=== PATIENT | female | born 1945 | race Caucasian/White ===

== ENCOUNTER 2023-01-12 11:35 | Outpatient (CLI) | payer MEDICARE, SELFPAY ==
--- NOTE | 2023-01-12 11:30 | RT.EKG_ITS ---
APPROVED REPORT Exam: Resting ECG Reason for Exam: pre op examination Patient Location: O HR:76 bpm ECG Measurements Heart Rate 76 AXIS IA 162 P 49 QRSd 79 QRS 16 QT 354 T 42 QTc 399 Conclusion Sinus rhythm...normal P axis, V-rate 50- 99 Sinus pause...long R-R interval, normal QRSd
== END 2023-01-12 11:36 | disposition home or self-care (01) ==
LOC: DI.CM 11:36
PROVIDERS: PCP Nurse Practitioner Family; Visit Provider Nurse Practitioner Family
DX: Z01.818 Encounter for other preprocedural examination (principal)
CPT/HCPCS: 93010

== ENCOUNTER 2023-01-28 06:49 | Day surgery (SDC) | payer MEDICARE, SELFPAY ==
--- NOTE | 2023-01-28 06:15 | W.ANESPRE ---
General Info Date of Service Date Performed: 01/28/23 Height: 4 ft 9 in Weight: 65.771 kg Body Mass Index (BMI): 31.4 Surgical Procedure: Operation Date: 01/28/23 08:25 Proposed Procedure Side Surgeon p Cataract Extraction with IOL Implant Left Noe Soto MD Meds Allergies and Home Medications Allergies Allergy/AdvReac Type Severity Reaction Status Date / Time No Known Allergies Allergy Verified 01/12/23 10:53 Home Medication Medication Instructions Recorded Unknown [No Known Home Meds] 01/12/23 Current Visit Medications: Current Medications Generic Name Dose Route Start Last Admin Trade Name Freq PRN Reason Stop Dose Admin Acetaminophen 1,000 mg 01/28/23 06:00 Acetaminophen 500 Mg Tab PO 02/27/23 05:59 Q4H PRN PRN Balanced Salt Solution 500 ml 01/28/23 06:00 Balanced Salt Soln.-Plus 500 Ml Bag OP 02/27/23 05:59 DIRECTED VASHTI Miscellaneous Medication 0 ml 01/28/23 06:00 Prednisolone 1%, Moxifloxacin 0.5%, Nepafenac 0.1% 5ml Btl OS 02/27/23 05:59 DIRECTED VASHTI Miscellaneous Medication 0 ml 01/28/23 06:00 Tropicam./Phenyleph. (1/2.5%) 5 Ml Btl OS 02/27/23 05:59 DIRECTED VASHTI Tetracaine HCl 0 ml 01/28/23 06:00 Tetracaine 0.5% 4 Ml Btl OS 02/27/23 05:59 DIRECTED VASHTI PFSH Active Problems Active Problems: Problem Status Onset Code Cortical age-related cataract, left eye H25.012 Nuclear age-related cataract, left eye H25.12 Osteoporosis M81.0 Pre-op exam Z01.818 Tobacco Smoking/Tobacco Use Status: Never Passive smoking exposure: Yes Second hand exposure: Yes Alcohol Alcohol Intake: never Substance Use Substance use: Never Vital Signs and Lab Results Lab Results Blood Type / Crossmatch: No Data to Display Complete Blood Count: No Data to Display Complete Metabolic Panel: No Data to Display Liver Function Panel: No Data to Display Coagulation Panel: No Data to Display Cardiac Panel: No Data to Display Arterial Blood Gas: No Data to Display Venous Blood Gas: No Data to Display Pancreas Panel: No Data to Display Thyroid Panel: No Data to Display Infectious Disease: No Data to Display Blood Cultures: No Data to Display Toxicology Panel: No Data to Display Imaging and Studies Imaging and Studies Study information below may be from another EMR and interpreted by another provider. Please see original notes in EMR for more complete details. EKG Summary: 01/05: sinus rhythm. Anesthesia Assessment and Plan Anesthesia History Personal History: No History of Anesthesia Complications Family History: No Family History of Anesthesia Complications Exercise Tolerance Exercise Tolerance: Metabolic Equivalents>4 Cardiac & Pulmonary Exam Cardiac Exam: Normal S1/S2 Heart Sounds Pulmonary Exam: Clear Bilateral Breath Sounds Implantable Cardiac Device Does patient have a Pacemaker or an ICD?: No Airway Exam Known Difficult Airway: No Mallampati Class: 4 Mouth Opening: Normal (> 3cm) Thyromental Distance: Greater than 3 cm Neck Range of Motion: Full ROM Neck Circumference: Normal Teeth Condition: Generalized Poor Dentition and Edentulous ASA Classification ASA Score: ASA 1 Emergency Case?: No NPO Status NPO Status: NPO Clears >2 hours, Solids >8 hours Anesthesia Plan Resuscitation Status: Full Code Anesthesia Technique: MAC Anesthesia Airway Planned: Natural Airway Monitors Used: Standard Monitors Preoperative Comments:: 77 yo female for cataract removal. Sig PMHx: osteoporosis, denies major, no meds. Does currently have an ulcerated tooth and is on antibiotics.
[2023-01-28 06:58] VITALS: BP 147/64; PULSE 82; RESP 16; TEMP 36.5; O2SAT 100
[2023-01-28 07:03] VITALS: BMI 31.4
[2023-01-28] MEDS: Tropicam./Phenyleph. (1/2.5%) 5 ML BTL OS ×3 (07:09→07:22)
[2023-01-28] MEDS: Povidone-Iodine Ophth 30 ML BTL (08:11)
[2023-01-28] MEDS: Tetracaine 0.5% 4 ML BTL OS (08:11)
[2023-01-28] MEDS: Duovisc Viscoelastic System EACH 1 EACH (08:16)
[2023-01-28] MEDS: Balanced Salt Soln.-PLUS 500 ML BAG OP (08:16)
[2023-01-28] MEDS: Phenylephrine/Lidocaine (15/10) MG/ML 1 ML VIAL (08:17)
[2023-01-28] MEDS: Lidocaine 1% Pres-Free 5 ML VIAL (08:17)
[2023-01-28] MEDS: Trypan Blue 0.06% 0.5 ML SYR (08:18)
[2023-01-28 08:35] VITALS: BP 145/62; PULSE 75; RESP 16; TEMP 36.2; O2SAT 99
--- NOTE | 2023-01-28 08:37 | ROE_ITS ---
Date of service: 01/28/23 Time of Service: 08:38 Operative Note Operative Note DATE OF PROCEDURE: 01/28/23 PRE-OP DIAGNOSIS: Nuclear/cortical cataract, left eye POST-OP DIAGNOSIS: same PROCEDURE: Cataract extraction using phacoemulsification with intraocular lens implant, left eye SURGEON: Noe Soto ANESTHESIA TYPE: Local By Surgeon and MAC Refer to Anesthesia Record PATHOLOGY: none sent COMPLICATIONS: None Patient was transported to: same day Patient's condition: stable Implants: Pasquale and Pasquale Tecnis Eyhance DIB00 Indications: Progressive decreased vision due to cataract, left eye Procedure Description: CATARACT SURGERY OPERATIVE REPORT PREOPERATIVE DIAGNOSIS: 1. Nuclear/cortical cataract, left eye POSTOPERATIVE DIAGNOSIS: Same OPERATION: 1. Cataract extraction using phacoemulsification with posterior chamber intraocular lens implant, left eye. IOL: IOL Household Refrigerator Mechanic/Model: Pasquale & Pasquale Tecnis Eyhance DIB00 IOL Power: + 24.5 diopters IOL Serial Number: [id number] Optic Diameter: 6.0 mm Haptic/Overall Diameter: 13.0 mm PHACO INFO: OlegFilecubed Vision System with OZil and Active Fluidics Cumulative Dispersed Energy (CDE): 8.40 seconds SURGEON: Noe Soto MD, JESSE ANESTHESIA: Monitored A [facility] (MAC), with local sub-tenon's anesthetic infiltration COMPLICATIONS: None SPECIMENS: None INDICATIONS FOR PROCEDURE: The patient is a 77-year-old lady with history of diminished visual acuity in her left eye secondary to the development of significant nuclear/cortical cataract. She is significantly symptomatic that she desires cataract surgery and attempt to improve and maximize her vision. The option of cataract surgery was offered to the patient and she wished to proceed. See office notes for detailed information. PROCEDURE: The correct surgical eye was identified and marked as the left eye and the pupil was dilated in the preoperative area using mydriatics and cycloplegics. The dilated pupil size was 6.0 mm. . The patient elected to proceed without oral sedation. The patient was brought to the operating room where cardiopulmonary monitoring was instituted and surgical time-out was performed, confirming the correct operative eye and IOL power. Topical anesthesia was administered and ophthalmic povidone-iodine 5% was instilled into the conjunctival fornices. The lara-ocular area was prepped with Betadine 10% solution and draped in the usual sterile fashion for intraocular surgery, including an aperture drape. A Tegaderm transparent film dressing was cut in half and used to cover the lashes and lid margins. Care was taken to sequester the lashes and lid margins under the Tegaderm dressing. A lid speculum was placed between the lids of the operative eye and the Oleg LuxOR Revalia operating microscope was maneuvered into position. Eliceo scissors were then used to make a conjunctival buttonhole approximately 6mm posterior to the limbus in the inferonasal quadrant. Blunt dissection was carried out to expose bare sclera, and a blunt-tipped sub-tenon?s anesthesia cannula was introduced and passed posteriorly along the globe where non- preserved plain lidocaine was injected into posterior sub-Tenon?s space. A sideport knife was used to make a paracentesis port. VisionBlue was injected into the anterior chamber and allowed to sit for 20 seconds. Intraocular phenylephrine/lidocaine was injected into the anterior chamber.. The anterior chamber was filled with viscoelastic. A keratome knife was used to construct a 2-plane near-clear corneal tunnel extending 2.0mm into clear cornea. A flap was raised on the anterior capsule and capsulorhexis forceps were used to complete a continuous curvilinear capsulorhexis of 5.0 mm. Balanced salt solution was then used to perform cortical cleaving hydro dissection and nuclear hydrodelineation until the lens could be freely rotated within the capsular bag. The lens nucleus was then disassembled and removed within the capsular bag and iris plane using phacoemulsification. Residual cortical material was removed using the irrigation/aspiration handpiece. The posterior capsule was carefully polished to remove as much residual lens epithelial cells as safely possible. The capsular bag was then inflated and the anterior chamber deepened with viscoelastic. The lens implant described above was inserted into the capsular bag using the Pasquale and Pasquale Simplicity pre- loaded injector. A Kuglen hook was used to dial the IOL into position. Residual viscoelastic was then removed first from posterior to the IOL, then from the anterior chamber using the I/A handpiece. The lens implant was noted to center nicely within the capsular bag. The incisions were stromally hydrated, and the anterior chamber was reformed using BSS. Then 0.5cc of moxifloxacin 1.0mg/ml were injected into the capsular bag and anterior chamber. The incisions were checked with a Weck spear and found to be secure. Several drops of ophthalmic povidone-iodine 5% were then applied to the eye followed by two drops of Imprimis combination prednisolone/moxifloxacin/nepafenac solution. The drapes were removed and a clear plastic protective eye shield was placed over the eye. The patient was then returned to Same Day Surgery in stable condition.
--- NOTE | 2023-01-28 08:37 | W.PM.DSUDISC ---
Date of service: 01/28/23 Time of Service: 08:37 Discharge Plan Disposition Patient Disposition: Home Discharge Details Attending Provider: Noe Soto Primary Care Provider: Mike Burk Home Meds and New Rx's Prescriptions: No Action No Known Home Meds Discharge Instructions Stand Alone Forms: Post-op Topical Cataract, Rama Caro (DSU) Discharge Orders Discharge Orders: Discharge Order (Routine); Ordered 01/28/23 Ordered By: Noe Soto DS: Diagnosis Discharge Diagnosis (1) Cortical age-related cataract, left eye: Status: Resolved (2) Nuclear age-related cataract, left eye: Status: Resolved
--- NOTE | 2023-01-28 09:22 | W.ANESPOSTOP ---
Postoperative Evaluation Date, Time and Location Date Performed: 01/28/23 Time Performed: 08:35 Patient Location: Day Surgery Unit Vital Signs Most Recent Imported Vital Signs: Most Recent Vital Signs Temp Pulse Resp BP Pulse Ox 36.2 C L 75 16 145/62 H 99 01/28/23 08:35 01/28/23 08:35 01/28/23 08:35 01/28/23 08:35 01/28/23 08:35 Pain Score Most Recent Pain Score: Most Recent Pain Score Pain Level 0 01/28/23 08:35 Assessment Mental Status: Awake (Alert & Oriented to Patient Baseline) Airway and Respiratory Function: Patent airway with normal (patient baseline) respiratory exam Cardiovascular Function: Hemodynamically Stable Hydration Status: Adequately Hydrated Nausea & Vomiting: No Nausea or Vomiting Pain: Pt. Denies Any Pain Peripheral Nerve Block: Patient did not receive a nerve block
== END 2023-01-28 08:55 | disposition home or self-care (01) ==
LOC: SUR 06:50
PROVIDERS: PCP Nurse Practitioner Family; Visit Provider Ophthalmology
PROC: (CPT 66984; principal; 2023-01-28 08:15)
DX: H25.012 Cortical age-related cataract, left eye (principal); H25.12 Age-related nuclear cataract, left eye
CPT/HCPCS: 66984; V2632

== ENCOUNTER 2023-02-11 06:22 | Day surgery (SDC) | payer MEDICARE, SELFPAY ==
--- NOTE | 2023-02-10 19:02 | HPE_ITS ---
Assessment and Plan Assessment and plan (1) Cortical age-related cataract, right eye: Status: Acute Assessment and plan: assessment: Visually significant cataract of the right eye. Plan: Cataract extraction with lens implantation of the right eye. (2) Nuclear age-related cataract, right eye: Status: Acute Assessment and plan: assessment: Visually significant cataract of the right eye. Plan: Cataract extraction with lens implantation of the right eye. History of Present Illness History of Present Illness Chief Complaint: Progressive decreased vision, right eye Narrative: Patient is a 76-year-old lady with history of progressive decreased vision in both eyes at both distance and near. She has significant difficulty with focusing at both distance and near, driving, and watching television, left eye worse than right. On examination she was noted to have visually significant bilateral cataracts. She underwent cataract surgery in the left eye on 01/28/2023, and is doing well postoperatively. She now presents for cataract surgery in the right eye. Review of Systems All systems reviewed & are unremarkable except as noted in HPI and below PFSH All Active Problems Osteoporosis (Chronic) 02/13/2020 Pre-op exam (Acute) Nuclear age-related cataract, right eye (Acute) Cortical age-related cataract, right eye (Acute) Surgical History History of surgery on arm left Hx of cataract removal with insertion of prosthetic lens 01/2023 Family History Mother Heart disease Hypertension Father Heart disease Hyperlipidemia Sister Hyperlipidemia Depression Hypertension Brother Alcohol use disorder Hyperlipidemia Substance use disorder Heart disease Hypertension Cancer Social History Smoking/Tobacco Use Status: Never Second Hand Exposure: Yes Smoking risk assessment performed?: Yes Alcohol Intake: never Drug use: Never Caregiver/Support person: No Housing: house How often do you talk on the phone with friends or family?: decline to answer How often do you get together with friends or relatives?: decline to answer How often do you attend sikhism or jehovah's witness services?: decline to answer Do you belong to any clubs or organized social groups?: decline to answer What type of physical activity do you participate in: walking and regular exercise Melinda/Christianity: Rastafarian Seatbelt use: always Drive intox or ride w/intox local truck driver: No Do you feel safe at home: Yes Do you feel safe in your relationship?: Yes Meds Allergies and Home Medications Allergies Allergy/AdvReac Type Severity Reaction Status Date / Time No Known Allergies Allergy Verified 02/11/23 06:44 Home Medications Medication Instructions Recorded Confirmed Type Unknown [No Known Home Meds] 01/12/23 02/11/23 History Exam Eyes Other: Most recent ocular examination is significant for corrected visual acuity of 20/30 in the right eye. Extract motility is normal. Intraocular pressure is 13 OD, 13 OS. Slit-lamp examination is significant for pupils dilating to 5 mm OU. In the right eye there is severe cortical cataract with mild nuclear cataract. In the left eye there is a well-positioned PCIOL with clear posterior capsule. Funduscopic examination reveals disc cupping of 0.2 OU with normal vessels, macula, peripheral retina and vitreous. Resp Auscultation: clear to auscultation bilaterally Cardio Rate: regular rate Rhythm: regular rhythm
[2023-02-11] MEDS: Tropicam./Phenyleph. (1/2.5%) 5 ML BTL OD ×3 (06:42→06:53)
[2023-02-11 06:45] VITALS: BP 110/56; PULSE 73; RESP 17; TEMP 36.6; O2SAT 100
--- NOTE | 2023-02-11 07:01 | W.ANESPRE ---
General Info Date of Service Date Performed: 02/11/23 Height: 4 ft 10 in Weight: 65.1 kg Body Mass Index (BMI): 29.9 Surgical Procedure: Operation Date: 02/11/23 07:40 Proposed Procedure Side Surgeon p Cataract Extraction with IOL Implant Right Noe Soto MD Meds Allergies and Home Medications Allergies Allergy/AdvReac Type Severity Reaction Status Date / Time No Known Allergies Allergy Verified 02/11/23 06:44 Home Medication Medication Instructions Recorded Unknown [No Known Home Meds] 01/12/23 Current Visit Medications: Current Medications Generic Name Dose Route Start Last Admin Trade Name Freq PRN Reason Stop Dose Admin Acetaminophen 1,000 mg 02/11/23 06:00 Acetaminophen 500 Mg Tab PO 03/13/23 05:59 Q4H PRN PRN Balanced Salt Solution 500 ml 02/11/23 06:00 Balanced Salt Soln.-Plus 500 Ml Bag OP 03/13/23 05:59 DIRECTED VASHTI Miscellaneous Medication 0 ml 02/11/23 06:00 Prednisolone 1%, Moxifloxacin 0.5%, Nepafenac 0.1% 5ml Btl OD 03/13/23 05:59 DIRECTED VASHTI Miscellaneous Medication 0 ml 02/11/23 06:00 02/11/23 06:53 Tropicam./Phenyleph. (1/2.5%) 5 Ml Btl OD 03/13/23 05:59 1 drp DIRECTED VASHTI Administration Tetracaine HCl 0 ml 02/11/23 06:00 Tetracaine 0.5% 4 Ml Btl OD 03/13/23 05:59 DIRECTED VASHTI PFSH Active Problems Active Problems: Problem Status Onset Code Osteoporosis M81.0 Pre-op exam Z01.818 Nuclear age-related cataract, left eye H25.12 Cortical age-related cataract, left eye H25.012 Nuclear age-related cataract, right eye H25.11 Cortical age-related cataract, right eye H25.011 Surgical History Surgical History (Updated 02/11/23 @ 06:44 by Danita Martin) History of surgery on arm left Hx of cataract removal with insertion of prosthetic lens 01/2023 Tobacco Smoking/Tobacco Use Status: Never Passive smoking exposure: Yes Second hand exposure: Yes Alcohol Alcohol Intake: never Substance Use Substance use: Never Vital Signs and Lab Results Vital Signs Most Recent Vital Signs in EMR: Most Recent Vital Signs Temp Pulse Resp BP Pulse Ox 36.6 C 73 17 110/56 L 100 02/11/23 06:45 02/11/23 06:45 02/11/23 06:45 02/11/23 06:45 02/11/23 06:45 Lab Results Blood Type / Crossmatch: No Data to Display Complete Blood Count: No Data to Display Complete Metabolic Panel: No Data to Display Liver Function Panel: No Data to Display Coagulation Panel: No Data to Display Cardiac Panel: No Data to Display Arterial Blood Gas: No Data to Display Venous Blood Gas: No Data to Display Pancreas Panel: No Data to Display Thyroid Panel: No Data to Display Infectious Disease: No Data to Display Blood Cultures: No Data to Display Toxicology Panel: No Data to Display Imaging and Studies Imaging and Studies Study information below may be from another EMR and interpreted by another provider. Please see original notes in EMR for more complete details. EKG Summary: 01/05: sinus rhythm. Anesthesia Assessment and Plan Anesthesia History Personal History: No History of Anesthesia Complications Family History: No Family History of Anesthesia Complications Exercise Tolerance Exercise Tolerance: Metabolic Equivalents>4 Pertinent Negatives Pertinent Negatives: No Symptoms of GERD, No Major Cardiovascular Symptoms or Complaints and No Major Pulmonary Symptoms or Complaints Cardiac & Pulmonary Exam Cardiac Exam: Normal S1/S2 Heart Sounds Pulmonary Exam: Clear Bilateral Breath Sounds Implantable Cardiac Device Does patient have a Pacemaker or an ICD?: No Airway Exam Known Difficult Airway: No Mallampati Class: 4 Mouth Opening: Normal (> 3cm) Thyromental Distance: Greater than 3 cm Neck Range of Motion: Full ROM Neck Circumference: Normal Teeth Condition: Generalized Poor Dentition and Edentulous ASA Classification ASA Score: ASA 1 Emergency Case?: No NPO Status NPO Status: NPO Clears >2 hours, Solids >8 hours Anesthesia Plan Resuscitation Status: Full Code Anesthesia Technique: General Anesthesia Airway Planned: Natural Airway Monitors Used: Standard Monitors
[2023-02-11 07:05] VITALS: BMI 29.9
[2023-02-11] MEDS: Lidocaine 1% Pres-Free 5 ML VIAL (07:35)
[2023-02-11] MEDS: Duovisc Viscoelastic System EACH 1 EACH (07:36)
[2023-02-11] MEDS: Phenylephrine/Lidocaine (15/10) MG/ML 1 ML VIAL (07:37)
[2023-02-11] MEDS: Povidone-Iodine Ophth 30 ML BTL (07:37)
[2023-02-11] MEDS: Trypan Blue 0.06% 0.5 ML SYR (07:38)
[2023-02-11] MEDS: Balanced Salt Soln.-PLUS 500 ML BAG OP (07:38)
[2023-02-11] MEDS: Tetracaine 0.5% 4 ML BTL OD (07:39)
[2023-02-11 07:56] VITALS: BP 120/54; PULSE 69; RESP 16; TEMP 36; O2SAT 99
--- NOTE | 2023-02-11 07:57 | W.PM.DSUDISC ---
Date of service: 02/11/23 Time of Service: 07:57 Discharge Plan Disposition Patient Disposition: Home Discharge Details Attending Provider: Noe Soto Primary Care Provider: Mike Burk Home Meds and New Rx's Prescriptions: No Action No Known Home Meds Discharge Instructions Stand Alone Forms: Post-op Topical Cataract, Rama Caro (DSU) Discharge Orders Discharge Orders: Discharge Order (Routine); Ordered 02/11/23 Ordered By: Noe Soto DS: Diagnosis Discharge Diagnosis (1) Cortical age-related cataract, right eye: Status: Resolved (2) Nuclear age-related cataract, right eye: Status: Resolved
--- NOTE | 2023-02-11 07:59 | ROE_ITS ---
Date of service: 02/11/23 Time of Service: 07:59 Operative Note Operative Note DATE OF PROCEDURE: 02/11/23 PRE-OP DIAGNOSIS: Nuclear/cortical cataract, right eye POST-OP DIAGNOSIS: same PROCEDURE: Cataract extraction using phacoemulsification with intraocular lens implant, right eye SURGEON: Noe Soto ANESTHESIA TYPE: Local By Surgeon and MAC Refer to Anesthesia Record ESTIMATED BLOOD LOSS: 0 PATHOLOGY: none sent COMPLICATIONS: None Patient was transported to: same day Patient's condition: stable Implants: Pasquale & Pasquael Tecnis Eyhance DIB00 Indications: Progressive visual loss due to cataract, right eye Procedure Description: CATARACT SURGERY OPERATIVE REPORT PREOPERATIVE DIAGNOSIS: 1. Nuclear/cortical cataract, right eye POSTOPERATIVE DIAGNOSIS: Same OPERATION: 1. Cataract extraction using phacoemulsification with posterior chamber intraocular lens implant, right eye. IOL: IOL Nuclear Supervising Operator/Model: Pasquale & Pasquale Tecnis Eyhance DIB00 IOL Power: + 23.5 diopters IOL Serial Number: [id number] Optic Diameter: 6.0mm Haptic/Overall Diameter: 13.0mm PHACO INFO: Oleg [employer]urion Vision System with OZil and Active Fluidics Cumulative Dispersed Energy (CDE): 8.71 seconds SURGEON: Noe Soto MD, JESSE ANESTHESIA: Monitored Anesthesia Care (MAC), with local sub-tenon's anesthetic infiltration COMPLICATIONS: None SPECIMENS: None INDICATIONS FOR PROCEDURE: The patient is a 77-year-old lady with history of diminished visual acuity in her right eye secondary to the development of nuclear/cortical cataract. She is significantly symptomatic that she desires cataract surgery and attempt to improve and maximize her vision. She has already undergone cataract surgery in the left eye and is doing well postoperatively. She now presents for cataract surgery in the right eye. PROCEDURE: The correct surgical eye was identified and marked as the right eye and the pupil was dilated in the preoperative area using mydriatics and cycloplegics. The dilated pupil size was 6.0 mm. The patient elected to proceed without oral sedation. The patient was brought to the operating room where cardiopulmonary monitoring was instituted and surgical time-out was performed, confirming the correct operative eye and IOL power. Topical anesthesia was administered and ophthalmic povidone-iodine 5% was instilled into the conjunctival fornices. The lara-ocular area was prepped with Betadine 10% solution and draped in the usual sterile fashion for intraocular surgery, including an aperture drape. A Tegaderm transparent film dressing was cut in half and used to cover the lashes and lid margins. Care was taken to sequester the lashes and lid margins under the Tegaderm dressing. A lid speculum was placed between the lids of the operative eye and the Oleg LuxOR Revalia operating microscope was maneuvered into position. Eliceo scissors were then used to make a conjunctival buttonhole approximately 6mm posterior to the limbus in the inferonasal quadrant. Blunt dissection was carried out to expose bare sclera, and a blunt-tipped sub-tenon?s anesthesia cannula was introduced and passed posteriorly along the globe where non- preserved plain lidocaine was injected into posterior sub-Tenon?s space. A sideport knife was used to make a paracentesis port. VisionBlue was injected into the anterior chamber and allowed to sit for 20 seconds. Intraocular phenylephrine/lidocaine was injected into the anterior chamber. The anterior chamber was filled with viscoelastic. A keratome knife was used to construct a 2-plane clear corneal tunnel extending 2.0mm into clear cornea. A flap was raised on the anterior capsule and capsulorhexis forceps were used to complete a continuous curvilinear capsulorhexis of 5.0 mm. Balanced salt solution was then used to perform cortical cleaving hydr odissection and nuclear hydrodelineation until the lens could be freely rotated within the capsular bag. The lens nucleus was then disassembled and removed within the capsular bag and iris plane using phacoemulsification. Residual cortical material was removed using the I/A handpiece. The posterior capsule was carefully polished to remove as much residual lens epithelial cells as safely possible. The capsular bag was then inflated and the anterior chamber deepened with cohesive viscoelastic. The lens implant described above was inserted into the capsular bag using the Pasquale and Kirby Simplicity pre-loaded injector. A Kuglen hook was used to dial the IOL into position. Residual viscoelastic was then removed first from posterior to the IOL, then from the anterior chamber using the I/A handpiece. The lens implant was noted to center nicely within the capsular bag. The incisions were stromally hydrated, and the anterior chamber was reformed using BSS. Then 0.5cc of moxifloxacin 1.0mg/ml were injected into the capsular bag and anterior chamber. The incisions were checked with a Weck spear and found to be secure. Several drops of ophthalmic povidone-iodine 5% were then applied to the eye followed by two drops of Imprimis combination prednisolone/moxifloxacin/nepafenac solution. The drapes were removed and a clear plastic protective eye shield was placed over the eye. The patient was then returned to Same Day Surgery in stable condition.
--- NOTE | 2023-02-11 08:18 | W.ANESPOSTOP ---
Postoperative Evaluation Date, Time and Location Date Performed: 02/11/23 Time Performed: 08:06 Patient Location: Day Surgery Unit Vital Signs Most Recent Imported Vital Signs: Most Recent Vital Signs Temp Pulse Resp BP Pulse Ox 36 C L 69 16 120/54 L 99 02/11/23 07:56 02/11/23 07:56 02/11/23 07:56 02/11/23 07:56 02/11/23 07:56 Pain Score Most Recent Pain Score: Most Recent Pain Score Pain Level 0 02/11/23 07:56 Assessment Mental Status: Awake (Alert & Oriented to Patient Baseline) Airway and Respiratory Function: Patent airway with normal (patient baseline) respiratory exam Cardiovascular Function: Hemodynamically Stable Hydration Status: Adequately Hydrated Nausea & Vomiting: No Nausea or Vomiting Pain: Pt. Denies Any Pain Peripheral Nerve Block: Patient did not receive a nerve block
== END 2023-02-11 08:21 | disposition home or self-care (01) ==
LOC: SUR 06:22
PROVIDERS: PCP Nurse Practitioner Family; Visit Provider Ophthalmology
PROC: (CPT 66984; principal; 2023-02-11 07:30)
DX: H25.011 Cortical age-related cataract, right eye (principal); H25.11 Age-related nuclear cataract, right eye; Z98.42 Cataract extraction status, left eye
CPT/HCPCS: 66984; V2632

== ENCOUNTER 2023-09-09 14:46 | Outpatient (REF) | payer MEDICARE, SELFPAY ==
[2023-09-09 14:02] LABS: TSH (W/Ref FT4) 1.14 uIU/mL (0.36-3.74)
== END 2023-09-09 14:47 | disposition home or self-care (01) ==
LOC: LBN 14:46
PROVIDERS: PCP Nurse Practitioner Family; Visit Provider Nurse Practitioner Family
DX: R53.83 Other fatigue (principal); F32.89 Other specified depressive episodes
CPT/HCPCS: 84443